=== PATIENT | female | born 1995 | race African-American/Black ===

== ENCOUNTER 2016-11-10 07:10 | Inpatient (IN) | payer OTHER ==
[2016-11-10] MEDS: DEXTROSE 5%-LACTATED RINGERS 1,000 ML IV SCH ×2 (07:30→15:45)
[2016-11-10 07:56] VITALS: BMI 34.0
[2016-11-10] MEDS ORDERED: PROMETHAZINE HCL 25 MG/1 ML VIAL IVPUSH ONE ×2 (08:22→15:15)
--- NOTE | 2016-11-10 08:30 | HP ---
Past Medical History - Primary Care Physician PCP:: Rashaun Wilkinson - Admission Chief Complaint: 40.4 weeks ,labor History of Present Illness: 21 yo f edc 11/17/16 in labor, no rom, no bleeding, cx 4 cm 80 vx -2 mi, fhr cat 1, contraction irregula History Source: Patient Limitations to Obtaining History: No Limitations - Past Medical History ...: 1 ...Para: 0 ...Term: 0 ...: 0 ...Spon : 0 ...Induced : 0 ...Multiple Gestation: 0 ...LMP: 02/03/16 ...EDC by Sono: 11/07/16 - Past Surgical History Hx Myomectomy: No Hx Transabdominal Cerclage: No - Smoking History Smoking history: Never smoked Have you smoked in the past 12 months: No Aproximately how many cigarettes per day: 0 - Alcohol/Substance Use Hx Alcohol Use: No History of Substance Use: reports: None - Social History History of Recent Travel: No Home Medications - Allergies Allergies/Adverse Reactions: Allergies Allergy/AdvReac Type Severity Reaction Status Date / Time No Known Allergies Allergy Verified 11/10/16 07:57 - Home Medications Home Medications: Ambulatory Orders Vit/Iron Fumarate/FA [ Tablet] 1 tab PO DAILY 09/02/16 Review of Systems - Review of Systems Constitutional: reports: No Symptoms Eyes: reports: No Symptoms HENT: reports: No Symptoms Neck: reports: No Symptoms Cardiovascular: reports: No Symptoms Respiratory: reports: No Symptoms Gastrointestinal: reports: No Symptoms Genitourinary: reports: No Symptoms Breasts: reports: No Symptoms Reported Musculoskeletal: reports: No Symptoms Integumentary: reports: No Symptoms Neurological: reports: No Symptoms Endocrine: reports: No Symptoms Hematology/Lymphatic: reports: No Symptoms Psychiatric: reports: No Symptoms Physical Exam - Maternity Vital Signs: Vital Signs Temperature 97.7 F 11/10/16 07:36 Pulse Rate 86 11/10/16 07:36 Respiratory Rate 14 11/10/16 07:36 Blood Pressure 122/75 11/10/16 07:36 O2 Sat by Pulse Oximetry (%) Constitutional: Yes: Well Nourished, No Distress, Calm Eyes: Yes: WNL, Conjunctiva Clear, EOM Intact HENT: Yes: WNL, Atraumatic, Normocephalic Neck: Yes: WNL, Supple, Trachea Midline Cardiovascular: Yes: WNL, Regular Rate and Rhythm Breast(s): Yes: WNL - Abdominal Exam/OB Fundal Height: 40 Number of Fetuses: Single Presentation: Vertex Contractions: Yes Regularity: Regular Intensity: Mod/Strong Monitor Mode: External Heart Rate Location: [facility] Category: I Accelerations: Uniform Decelerations: None - Vaginal Exam/OB Vaginal Bleediing: No Speculum Exam: No Dilatation (cm): 4 cm Effacement (%): 80 Amniotic Membrane Status: Intact Presentation: Vertex/Position Station: -2 - Physical Exam Musculoskeletal: Yes: WNL Extremities: Yes: WNL Edema: Yes Edema: LLE: Trace, RLE: Trace Integumentary: Yes: WNL Deep Tendon Reflex Grade: Normal +2 Psychiatric: Yes: WNL Hemorrhage Risk Assessment - Risk Factors Risk Score: 0 Risk Level: Low Risk Problem List - Problems (1) Postmaturity , 40-42 weeks gestation Code(s): O48.0 - POST-TERM (2) Labor established Code(s): TGP2832 - Assessment/Plan admit for vaginal delivery, FHM, pain management
[2016-11-10 09:07] LABS: BASOPHIL 0.1 % (0-2.0); EOSINOPHIL 0.6 % (0-4.5); MCHC 32.1 g/dl (32.0-36.0); MEAN PLT VOLUME 11.3 fl (7.5-11.1); NEUTROPHILS 71.9 % (42.8-82.8); RDW 15.2 % (11.6-15.6); WHITE BLOOD COUNT 8.7 K/mm3 (4.0-10.0)
[2016-11-10] MEDS ORDERED: BUTORPHANOL TARTRATE 1 MG/ML VIAL IVPUSH ONE ×3 (09:16→15:45)
[2016-11-10 09:18] LABS: INR 0.94 (0.82-1.09); PROTHROMBIN TIME (PATIENT) 10.3 SEC (9.98-11.88)
[2016-11-10 09:19] LABS: ANION GAP 7 (8-16); CALCIUM 9.4 mg/dL (8.5-10.1); CO2 26 mmol/L (21-32); CREATININE 0.6 mg/dL (0.55-1.02); GLUCOSE,RANDOM 89 mg/dL (74-106)
[2016-11-10 09:21] LABS: ACTIVATED PTT 31.2 SECONDS (26.9-34.4)
[2016-11-10 10:24] LABS: PLATELET COMMENT2 FEW LARGE PLTS; PLATELET COUNT 98 K/MM3 (134-434); PLATELET ESTIMATE DECREASED (NORMAL)
--- NOTE | 2016-11-10 12:11 | PN ---
Progress Note (short form) - Note Progress Note: cx 8 cm 80 vx -2 , srom during exam, light mec , fhr cat 1, regullar contraction Problem List - Problems (1) Postmaturity , 40-42 weeks gestation Code(s): O48.0 - POST-TERM (2) Labor established Code(s): [id number] -
--- NOTE | 2016-11-10 13:28 | PN ---
Progress Note (short form) - Note Progress Note: cx 8 cm 80 vx -1 mr, fhr cat 1, Problem List - Problems (1) Postmaturity , 40-42 weeks gestation Code(s): O48.0 - POST-TERM (2) Labor established Code(s): [id number] -
--- NOTE | 2016-11-10 19:29 | PN ---
Progress Note (short form) - Note Progress Note: cx full 100 vx 1+ station, fhr cat 1 , pushing Problem List - Problems (1) Postmaturity , 40-42 weeks gestation Code(s): O48.0 - POST-TERM (2) Labor established Code(s): SQI3799 -
[2016-11-10] MEDS ORDERED: METHYLERGONOVINE MALEATE 0.2 MG/1 ML AMP IM PRN (20:09)
[2016-11-10] MEDS ORDERED: oxyCODONE HCL 5 MG TABLET PO PRN (20:09)
[2016-11-10] MEDS ORDERED: WITCH HAZEL 50% (TUCKS) 40 PAD/JAR PAD TP PRN (20:09)
[2016-11-10] MEDS ORDERED: BENZOCAINE 28 GM HEMORRHOIDAL OINTMENT TP PRN (20:09)
[2016-11-10] MEDS ORDERED: BENZOCAINE 20% 57 GM BOTTLE TP PRN (20:09)
[2016-11-10] MEDS ORDERED: BISACODYL 10 MG SUPP.RECT RC PRN (20:09)
[2016-11-10] MEDS ORDERED: D5W-LR W/ 20 UNITS OXYTOCIN 1,000 ML IV SCH (20:15)
[2016-11-10] MEDS: ACETAMINOPHEN 325 MG TABLET (FP) PO PRN (20:40)
[2016-11-10] MEDS: IBUPROFEN 600 MG TABLET (FP) PO PRN (20:40)
[2016-11-10] MEDS: FERROUS SO4 325 MG TABLET (FP) PO SCH (23:09)
[2016-11-11 07:47] LABS: BASOPHIL 0.2 % (0-2.0); EOSINOPHIL 0.2 % (0-4.5); MCH 25.8 pg (25.7-33.7); MEAN CELL VOLUME 80.5 fl (80-96); MEAN PLT VOLUME 11.8 fl (7.5-11.1); NEUTROPHILS 73.7 % (42.8-82.8); PLATELET COUNT 92 K/MM3 (134-434); RDW 15.1 % (11.6-15.6)
--- NOTE | 2016-11-11 09:42 | PN ---
Post Progress Note - Subjective Subjective: c/o cramps 7 perineal soreness Post Day: 1 Type of Delivery: Vital Signs: Vital Signs Temperature 97.9 F 11/11/16 06:00 Pulse Rate 71 11/11/16 06:00 Respiratory Rate 18 11/11/16 06:00 Blood Pressure 111/63 11/11/16 06:00 O2 Sat by Pulse Oximetry (%) 100 11/10/16 21:15 Breast Exam: Yes: Soft, Other (plans to BF ). No: Engorged Uterus: Yes: Fundus Firm, Fundus below umbilicus Lochia: Yes: Rubra Lochia, amount: Moderate Extremities: Yes: Calves non-tender Perineum: Yes: Intact, Episiotomy Activity: Ambulating - Labs Labs: CBC WBC 14.0 K/mm3 (4.0-10.0) H D 11/11/16 06:20 RBC 4.12 M/mm3 (3.60-5.2) 11/11/16 06:20 Hgb 10.6 GM/dL (10.7-15.3) L D 11/11/16 06:20 Hct 33.2 % (32.4-45.2) D 11/11/16 06:20 MCV 80.5 fl (80-96) 11/11/16 06:20 MCH 25.8 pg (25.7-33.7) 11/11/16 06:20 MCHC 32.0 g/dl (32.0-36.0) 11/11/16 06:20 RDW 15.1 % (11.6-15.6) 11/11/16 06:20 Plt Count 92 K/MM3 (134-434) L 11/11/16 06:20 MPV 11.8 fl (7.5-11.1) H 11/11/16 06:20 Neutrophils % 73.7 % (42.8-82.8) 11/11/16 06:20 Lymphocytes % 18.0 % (8-40) 11/11/16 06:20 Monocytes % 7.9 % (3.8-10.2) 11/11/16 06:20 Eosinophils % 0.2 % (0-4.5) 11/11/16 06:20 Basophils % 0.2 % (0-2.0) 11/11/16 06:20 Platelet Estimate Decreased (NORMAL) 11/10/16 08:25 Platelet Comment No clumping noted 11/10/16 08:25 Platelet Comment Few large plts 11/10/16 08:25 Assessment/Plan stable. ct pp care discharge tomorrow.
[2016-11-11] MEDS: PRENATAL VITAMINS W/ FOLIC ACID TABLET (FP) PO SCH (09:53)
[2016-11-11] MEDS: FERROUS SO4 325 MG TABLET (FP) PO SCH ×2 (09:53→21:30)
[2016-11-11] MEDS: IBUPROFEN 600 MG TABLET (FP) PO PRN (09:53)
[2016-11-11] MEDS: DEXTROSE 5%-LACTATED RINGERS 1,000 ML IV SCH (18:57)
[2016-11-11] MEDS: ACETAMINOPHEN 325 MG TABLET (FP) PO PRN (20:18)
--- NOTE | 2016-11-11 20:27 | HOSP ---
Subjective - Review of Symptoms Events since last encounter: CC: chest pain HPI: 21yo F s/p normal vaginal delivery yesterday c/o chest pain. Pain began 2 hrs ago. Pt can point with a finger to center of chest, sub-sternal, where pain is located. Pain does not radiate, and is described as a tight sensation in quality. Pain is worse with leaning forward, better with laying back. Pain is not worse with deep breathing or coughing. Pain is rated 5/10. Pt denies pleuritic chest pain, palpitations, SOB, dyspnea, orthopnea. EKG: revealed NSR PMH: none FH: DM and HTN, denies coagulation disorders and CVD Social Hx: Smoking: never ETOH: none illicit drugs: none Physical Examination Vital Signs: Vital Signs Temperature 97.7 F 11/11/16 19:51 Pulse Rate 99 H 11/11/16 19:51 Respiratory Rate 18 11/11/16 19:51 Blood Pressure 113/65 11/11/16 19:51 O2 Sat by Pulse Oximetry (%) 100 11/10/16 21:15 Constitutional: Yes: Well Nourished, No Distress Eyes: Yes: Conjunctiva Clear, EOM Intact HENT: Yes: Atraumatic, Normocephalic Neck: Yes: Trachea Midline Cardiovascular: Yes: Regular Rate and Rhythm, S1, S2. No: JVD, Gallop, Murmur, Rub, S3, S4 Respiratory: Yes: CTA Bilaterally. No: Accessory Muscle Use, Cough, Orthopnea, Rales, Rhonchi, SOB, Stridor, Wheezes Gastrointestinal: Yes: WNL Neurological: Yes: Alert, Oriented. No: Weakness Labs: CBC, BMP 11/11/16 06:20 11/10/16 08:25 Hospitalist Encounter Assessment: 21yo F s/p normal vaginal delivery yesterday c/o positional chest pain. EKG revealed NSR. 1) atypical chest pain - likely 2/2 positional chest pain - Tylenol 650mg PO q3hr prn for pain - encourage PO fluids - cont. to monitor. Will re-evaluate if symptoms persist. 2) FEN Fluids: encourage PO fluids Electrolytes: wnl Nutrition: regular diet 3) DVT prophylaxis - early ambulation Visit type - Emergency Visit Emergency Visit: Yes ED Registration Date: 11/10/16 Care time: The patient presented to the Emergency Department on the above date and was hospitalized for further evaluation of their emergent condition. - New Patient This patient is new to me today: Yes Date on this admission: 11/11/16 - Critical Care Critical Care patient: No
[2016-11-11] MEDS ORDERED: SENNOSIDES/DOCUSATE COMBO (SENNA PLUS) TABLET (UD) PO PRN (22:00)
[2016-11-12] MEDS: PRENATAL VITAMINS W/ FOLIC ACID TABLET (FP) PO SCH (09:16)
[2016-11-12] MEDS: FERROUS SO4 325 MG TABLET (FP) PO SCH (09:16)
[2016-11-12 09:49] VITALS: BP 96/59; PULSE 88; TEMP 97.8
--- NOTE | 2016-11-12 09:56 | PN ---
Post Progress Note - Subjective Subjective: no c/o gas pains yesterday evening c/o chest pain, retrospectively pt says it was gas pain no c/o cramps Post Day: 2 Type of Delivery: Vital Signs: Vital Signs Temperature 97.8 F 11/12/16 09:49 Pulse Rate 88 11/12/16 09:49 Respiratory Rate 18 11/12/16 09:49 Blood Pressure 96/59 11/12/16 09:49 O2 Sat by Pulse Oximetry (%) 100 11/10/16 21:15 Breast Exam: Yes: Soft, Other (BF ). No: Engorged Uterus: Yes: Fundus Firm, Fundus below umbilicus, Non-tender Lochia: Yes: Rubra Lochia, amount: Moderate Extremities: Yes: Calves non-tender, Edema Perineum: Yes: Intact, Episiotomy Activity: Ambulating - Labs Labs: CBC WBC 14.0 K/mm3 (4.0-10.0) H D 11/11/16 06:20 RBC 4.12 M/mm3 (3.60-5.2) 11/11/16 06:20 Hgb 10.6 GM/dL (10.7-15.3) L D 11/11/16 06:20 Hct 33.2 % (32.4-45.2) D 11/11/16 06:20 MCV 80.5 fl (80-96) 11/11/16 06:20 MCH 25.8 pg (25.7-33.7) 11/11/16 06:20 MCHC 32.0 g/dl (32.0-36.0) 11/11/16 06:20 RDW 15.1 % (11.6-15.6) 11/11/16 06:20 Plt Count 92 K/MM3 (134-434) L 11/11/16 06:20 MPV 11.8 fl (7.5-11.1) H 11/11/16 06:20 Neutrophils % 73.7 % (42.8-82.8) 11/11/16 06:20 Lymphocytes % 18.0 % (8-40) 11/11/16 06:20 Monocytes % 7.9 % (3.8-10.2) 11/11/16 06:20 Eosinophils % 0.2 % (0-4.5) 11/11/16 06:20 Basophils % 0.2 % (0-2.0) 11/11/16 06:20 Platelet Estimate Decreased (NORMAL) 11/10/16 08:25 Platelet Comment No clumping noted 11/10/16 08:25 Platelet Comment Few large plts 11/10/16 08:25 Assessment/Plan stable. plan discharge today
--- NOTE | 2016-11-12 20:59 | DS ---
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 Vital Signs: Vital Signs Temperature 97.8 F 11/12/16 09:49 Pulse Rate 88 11/12/16 09:49 Respiratory Rate 18 11/12/16 09:49 Blood Pressure 96/59 11/12/16 09:49 O2 Sat by Pulse Oximetry (%) 100 11/10/16 21:15 Constitutional: Yes: Well Nourished, No Distress, Calm Eyes: Yes: WNL, Conjunctiva Clear, EOM Intact HENT: Yes: WNL, Atraumatic, Normocephalic Neck: Yes: WNL, Supple, Trachea Midline Cardiovascular: Yes: WNL, Regular Rate and Rhythm Respiratory: Yes: WNL, Regular, CTA Bilaterally Gastrointestinal: Yes: WNL ...Rectal Exam: Yes: WNL Renal/: Yes: WNL ....Post : Yes: Uterus firm, Uterus non-tender, Slight lochia rubra Breast(s): Yes: WNL Musculoskeletal: Yes: WNL Extremities: Yes: WNL Edema: No Integumentary: Yes: WNL Neurological: Yes: WNL, Alert, Oriented ...Motor Strength: WNL Psychiatric: Yes: WNL, Alert, Oriented Labs: CBC, BMP 11/11/16 06:20 11/10/16 08:25 Delivery - Delivery Vaginal Delivery: Spontaneous (no complication) Type of Anesthesia: Local Episiotomy/Laceration: Midline, 1st degree EBL (cc): 300 Delivery, Single - Stages of Labor Date 1st Stage Initiatied: 11/10/16 Time 1st Stage Initiated: 02:30 Date 2nd Stage Initiated: 11/10/16 Time 2nd Stage Initiated: 19:15 Date of Delivery: 11/10/16 Time of Delivery: 19:42 Time Placenta Delivered: 19:47 - 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 Present: No Infant Gender: Male Weight: 7 lb 10 oz Position: Left, OA Total Hours ROM (Hrs/Mins): 7h47m - 1 Minute Total Score: 9 5 Minutes Total Score: 9 - Feeding Plan Initial Plan: Elected not to breastfeed exclusively throughout hospitalization Discharge Summary Reason For Visit: LABOR Current Active Problems Labor established (Acute) Postmaturity , 40-42 weeks gestation (Acute) Procedures: Principal: Hospital Course: uneventful Condition: Stable - Instructions Diet, Activity, Other Instructions: Discharge Instructions * Out of Bed * * Regular Diet * Aimee Care * Avoid sex for 6 weeks * rtc 6 weeks , call for appt If you experience excessive bleeding or fever over 101 degrees, call doctor, the clinic or go to the Emergency Room. Referrals: Rashaun Wilkinson MD [Staff Physician] - Disposition: HOME - Home Medications Comprehensive Discharge Medication List: Ambulatory Orders Vit/Iron Fumarate/FA [ Tablet] 1 tab PO DAILY 09/02/16 Acetaminophen [Tylenol .Regular Strength -] 650 mg PO Q3H PRN #0 tablet Benzocaine [Americaine 20% [place] -] 1 spray TP PRN PRN #0 bottle 11/12/16 Ibuprofen [Motrin -] 200 mg PO Q4H PRN #0 tablet 11/12/16 Vitamins (Sjr) - 1 tab PO DAILY tablet 11/12/16
--- NOTE | 2016-11-13 09:33 | EKG ---
Test Reason : Blood Pressure : / mmHG Vent. Rate : 095 BPM Atrial Rate : 095 BPM P-R Int : 138 ms QRS Dur : 082 ms QT Int : 350 ms P-R-T Axes : 055 055 034 degrees QTc Int : 439 ms NORMAL SINUS RHYTHM NORMAL ECG NO PREVIOUS ECGS AVAILABLE Confirmed by LEIGH FRANKLIN MD ([id number]) on 11/13/2016 9:32:54 AM Referred By: Confirmed By:LEIGH FRANKLIN MD
== END 2016-11-12 18:20 | disposition home or self-care (01) | DRG 560 ==
LOC: JDEL 07:10 → JLDR 07:30 → J3W 21:45
PROVIDERS: ADMIT Obstetrics & Gynecology; ATTEND Obstetrics & Gynecology
PROC: 10E0XZZ Delivery of Products of Conception, External Approach (ICD-10-PCS; principal; 2016-11-10)
PROC: 0HQ9XZZ Repair Perineum Skin, External Approach (ICD-10-PCS; 2016-11-10)
PROC: 4A1HXCZ Monitoring of Products of Conception, Cardiac Rate, External Approach (ICD-10-PCS; 2016-11-10)
DX: O48.0 Post-term pregnancy (principal); O70.0 First degree perineal laceration during delivery; O77.0 Labor and delivery complicated by meconium in amniotic fluid; O75.89 Other specified complications of labor and delivery; Z3A.40 40 weeks gestation of pregnancy; Z37.0 Single live birth
CPT/HCPCS: 36415; 59409; 80048; 85025; 85610; 85730; 86593; 86850; 86900; 86901; 93005; 93010

== ENCOUNTER 2019-10-15 10:27 | Emergency (ER) | payer OTHER ==
[2019-10-15 10:33] VITALS: BP 116/72; PULSE 69; TEMP 98; BMI 32.5
[2019-10-15] MEDS ORDERED: IBUPROFEN 600 MG TABLET (FP) PO ONE ×2 (10:33→10:47)
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
== END 2019-10-15 11:46 | disposition home or self-care (01) ==
LOC: JERFT 10:27
DX: M54.6 Pain in thoracic spine (principal); M79.672 Pain in left foot
CPT/HCPCS: 73030-TC-RT-FY; 73610-TC-LT-FY; 73630-TC-LT; 99284-25